=== PATIENT | male | born 1995 | race Hispanic/Latino ===

== ENCOUNTER 2023-01-07 08:51 | Day surgery (SDC) | payer BC ==
[2023-01-07] MEDS ORDERED: EPINEPHrine 1 MG/10 ML SYR IV ONE (08:52)
[2023-01-07] MEDS ORDERED: BUPIVACAINE 0.25% PF 30 ML VIAL ONE (09:11)
[2023-01-07] MEDS ORDERED: Ringers Lactate 1,000 ML IV ONE (09:27)
[2023-01-07] MEDS ORDERED: CEFAZOLIN SODIUM 2 GM/VIAL ONE (09:30)
[2023-01-07] MEDS ORDERED: HYDROMORPHONE HCL 2 MG/ML inj ONE (09:49)
[2023-01-07] MEDS ORDERED: propofoL 200 MG/20 ML VIAL IV ONE (09:57)
[2023-01-07] MEDS ORDERED: MIDAZOLAM HCL 2 MG/2 ML INJ ONE (09:59)
[2023-01-07] MEDS ORDERED: LIDOCAINE 2% MPF 5 ML VIAL ONE (09:59)
[2023-01-07] MEDS ORDERED: FENTANYL CITR 100 MCG/2 ML ONE (10:00)
[2023-01-07] MEDS ORDERED: dexAMETHasone 10 MG/ML VIAL ONE (10:54)
[2023-01-07] MEDS ORDERED: Phenylephrine HCl 10 MG/ML 1 ML VIAL ONE (11:14)
[2023-01-07] MEDS ORDERED: ONDANSETRON 4 MG/2 ML VIAL ONE (11:20)
--- NOTE | 2023-01-07 11:26 | P.OP ---
Preoperative diagnosis: RIGHT Buttock Exophytic Skin Lesion Postoperative diagnosis: RIGHT Buttock Exophytic Skin Lesion Primary procedure: Wide Local Excision of RIGHT Buttock Exophytic Skin Lesion Anesthesia: GETA + Local Estimated blood loss: <2cc Specimen: RIGHT Buttock Exophytic Skin Lesion Findings: RIGHT Buttock Exophytic Skin Lesion Complications: None Transferred to: Recovery Room Condition: Good
[2023-01-07] MEDS ORDERED: SUCCINYLCHOLINE 20 MG/ML (10 ML) IV ONE (11:43)
--- NOTE | 2023-01-07 11:54 | EKG ---
Test Date: 2023-01-07 Test Time: 09:33:59 Dementia Program Director: JONATHON MEASUREMENT RESULTS: Intervals: Rate: 82 NE: 138 QRSD: 88 QT: 360 QTc: 420 Mobile: P: 38 NE: 138 QRS: 17 T: 6 INTERPRETIVE STATEMENTS: Normal sinus rhythm Nonspecific T wave abnormality Abnormal ECG No previous ECG available for comparison Electronically Signed On 01-07-23 11:53:21 CDT by Sameer Howard
--- NOTE | 2023-01-07 12:11 | RAD REPORT ---
EXAM DESCRIPTION: Carlos Single View01/07/2023 12:02 pm CLINICAL HISTORY: Respiratory distress COMPARISON: 2014 FINDINGS: The patient is in a poor degree of inspiration. The lungs appear grossly clear. Heart probably is normal size
[2023-01-07] MEDS ORDERED: NALOXONE HCL 2 MG/2 ML VIAL ONE (14:30)
[2023-01-07] MEDS ORDERED: NALOXONE 0.4 MG/ML VIAL ONE (14:33)
--- NOTE | 2023-01-07 22:30 | OP ---
Date of Procedure: 01/07/2023 Surgeon: João Cantor MD, Preoperative Diagnosis: Right buttock exophytic skin lesion. Postoperative Diagnosis: Right buttock exophytic skin lesion. Procedure Performed: Wide local excision of right buttock exophytic skin lesion. Anesthesia: General endotracheal plus local with 0.25% Marcaine. Estimated Blood Loss: 2 cc. Specimen: Right buttock exophytic skin lesion. Findings: Right buttock exophytic skin lesion. Complications: None. The patient was transferred to recovery room in good condition. Procedure In Detail: After informed consent was obtained, the patient was brought to the operating r oom, prepped and draped in the usual sterile fashion. After adequate anesthesia was achieved, I made a circular incision. After appropriately anesthetizing the skin of the right buttock near the glute al fold down to subcutaneous tissues where a stalked exophytic skin lesion was appreciated, had a ped unculated appearance with significant enlargement of the head and a polyp-type configuration. I circ umferentially dissected this out with a 15 blade circumferentially down around the stalk for approxim ately 1 cm margin down to subcutaneous tissues into the subcutaneous adipose tissues. At this point, the skin lesion was ligated and sent off for pathologic examination. Hemostasis achieved with elect rocautery. There was no suspicious appearance to the tissues surrounding residual. I then proceeded to irrigate the area and closed with interrupted 3-0 nylon sutures in an interrupted fashion with go od approximation of tissues. The patient tolerated the procedure well without evidence of complication and transferred to PACU in good condition. All counts were correct at the end of the ca se. CHAVEZ/MODL Voice ID: [id number] Report ID: [id number]
== END 2023-01-07 15:28 | disposition home or self-care (01) ==
LOC: OR 08:51
PROVIDERS: ATTEND Surgery
PROC: 0JB90ZZ Excision of Buttock Subcutaneous Tissue and Fascia, Open Approach (ICD-10-PCS; principal; 2023-01-07 10:15)
DX: L98.9 Disorder of the skin and subcutaneous tissue, unspecified (principal)
CPT/HCPCS: 11406; 93005; 80048; 36415; 88305; 71045; J2704; J2310; J2371; J2001; J2250; J1170; J3010; J1100; J0171; J2405; J7120; 88304